=== PATIENT | female | born 1975 | race Hispanic/Latino ===

== ENCOUNTER 2017-10-09 16:36 | Emergency (ER) | payer OTHER ==
[2017-10-09] MEDS ORDERED: predniSONE 20 MG TAB ONE (17:27)
[2017-10-09] MEDS ORDERED: Ibuprofen 800 MG TAB ONE (17:27)
== END 2017-10-09 18:16 | disposition home or self-care (01) ==
LOC: BURERS 16:36
DX: M51.26 Other intervertebral disc displacement, lumbar region (principal); E11.9 Type 2 diabetes mellitus without complications; I10 Essential (primary) hypertension; F32.9 Major depressive disorder, single episode, unspecified; J45.909 Unspecified asthma, uncomplicated; Z87.442 Personal history of urinary calculi
CPT/HCPCS: 96372; J1170; J7506

== ENCOUNTER 2018-01-28 18:40 | Emergency (ER) | payer MEDICARE, MEDICAID | END 2018-01-28 19:08 | disposition home or self-care (01) | LOC: BURERS 18:40 | DX: M77.9 Enthesopathy, unspecified (principal); J45.909 Unspecified asthma, uncomplicated; Z86.718 Personal history of other venous thrombosis and embolism; E11.9 Type 2 diabetes mellitus without complications; I10 Essential (primary) hypertension; F32.9 Major depressive disorder, single episode, unspecified; Z79.84 Long term (current) use of oral hypoglycemic drugs; Z79.899 Other long term (current) drug therapy | CPT/HCPCS: 99283 ==

== ENCOUNTER 2018-03-04 23:23 | Emergency (ER) | payer MEDICARE, MEDICAID ==
[2018-03-05 00:08] LABS: #Basophils 0.2 thou/uL (0.0-0.2); #Eosinphils 0.3 thou/uL (0.0-0.7); #Lymphocytes 2.3 thou/uL (1.20-3.40); #Neutrophils 12.9 thou/uL (1.40-6.50); %Basophils 0.9 % (0.0-1.0); %Eosinophils 1.7 % (0.0-10.0); %Monocytes 5.9 % (0.0-10.0); %Neutrophils 77.5 % (42.0-75.0); Hemoglobin 14.7 g/dL (12.0-16.0); Mean Corpuscular HGB CONC 35.9 g/dL (32.0-36.0); Mean Corpuscular Hemoglobin 29.2 pg (27.0-31.0); Mean Corpuscular Volume 81.3 fl (81.0-99.0); Mean Platelet Volume 7.8 fL (7.4-10.4); Platelet Count 311 thou/uL (130-400); RBC Distribution Width 12.5 % (11.5-14.5); Red Blood Cell (RBC) Count 5.02 mill/uL (4.20-5.40); White Blood Cell (WBC) Count 16.6 thou/uL (4.8-10.8)
[2018-03-05 00:21] LABS: ALT (SGPT) 33 U/L (8-55); AST (SGOT) 26 U/L (5-34); Alkaline Phosphatase 104 U/L (40-150); Anion Gap 13 mmol/L (10-20); BUN (Urea Nitrogen) 8 mg/dL (7.0-18.7); Bilirubin, Total 1.2 mg/dL (0.2-1.2); CK (CPK) 41 U/L (29-168); Calc. Creatinine Clearance 0 mL/min (70-130); Carbon Dioxide 23 mmol/L (22-29); Chloride 103 mmol/L (98-107); Estimated GFR-MDRD 83; Globulin 3.6 g/dL (2.4-3.5); Glucose 269 mg/dL (70-105); Potassium 3.9 mmol/L (3.5-5.1); Protein, Total 7.6 g/dL (6.0-8.3); Sodium 135 mmol/L (136-145)
[2018-03-05 00:22] LABS: CKMB 0.5 ng/mL (0-6.6); Troponin I Less than 0.010 ng/mL (< 0.028)
[2018-03-05 00:30] LABS: Clarity Hazy (Clear); Glucose, Urine (Dipstick) 500 mg/dL (Negative); Leukocyte Negative (Negative); Nitrite Negative (Negative); Protein, Urine (Dipstick) 30 mg/dL (Neg-Trace); pH, Urine 8.5 (5.0-9.0)
[2018-03-05 00:31] LABS: Bilirubin Negative (Negative); Blood, Urine Negative (Negative)
[2018-03-05 00:37] LABS: Bacteria/HPF 1+ HPF (None Seen); RBC/HPF 0-3 HPF (0-3); Squamous Epithelial 0-3 HPF (0-3); WBC/HPF 0-3 HPF (0-3)
[2018-03-05] MEDS ORDERED: cefTRIAXone\\ROCEPHIN 1 GM VIAL ONE (00:53)
[2018-03-05] MEDS ORDERED: Ketorolac Tromethamine 30 MG/ML VIAL ONE (01:01)
--- NOTE | 2018-03-05 10:07 | RAD ---
PORTABLE CHEST: DATE: 03/04/18. FINDINGS: An AP portable film at 2350 shows a normal-sized heart and clear lungs. No infiltrate or effusion wa s seen. At most, there may be a few increased markings in the right base medially, but I am not suff iciently convinced to be able to call a pneumonia at this time. A PA and lateral followup if the pat ient is not improving. IMPRESSION: Probably negative study. Slight haziness right base medially. If symptoms persist, then repeat stud y with PA and lateral views. POS: HOME
== END 2018-03-05 00:59 | disposition home or self-care (01) ==
LOC: BURERS 23:23
DX: E86.0 Dehydration (principal); N39.0 Urinary tract infection, site not specified; E11.9 Type 2 diabetes mellitus without complications; F32.9 Major depressive disorder, single episode, unspecified; I10 Essential (primary) hypertension; M86.9 Osteomyelitis, unspecified; J45.909 Unspecified asthma, uncomplicated; Z87.442 Personal history of urinary calculi; Z79.84 Long term (current) use of oral hypoglycemic drugs; Z79.899 Other long term (current) drug therapy
CPT/HCPCS: 36415; 71045; 80053; 81003; 81015; 82550; 82553; 83605; 84484; 85025; 87040; 87077; 87086; 87186; 87804; 93005; 96361; 96374; 96375; J0696; J1885

== ENCOUNTER 2018-05-04 08:03 | Emergency (ER) | payer MEDICARE, MEDICAID ==
[2018-05-04] MEDS ORDERED: Nitroglycerin 0.4 MG TAB (25 Tab Bottle) ONE (08:23)
[2018-05-04] MEDS ORDERED: Acetaminophen 500 MG TAB ONE (08:23)
[2018-05-04 08:24] LABS: #Basophils 0.1 thou/uL (0.0-0.2); #Eosinphils 0.4 thou/uL (0.0-0.7); #Lymphocytes 2.1 thou/uL (1.20-3.40); #Monocytes 0.5 thou/uL (0.11-0.59); #Neutrophils 5.7 thou/uL (1.40-6.50); %Basophils 1.2 % (0.0-1.0); %Eosinophils 4.8 % (0.0-10.0); %Lymphocytes 23.7 % (21.0-51.0); %Monocytes 5.9 % (0.0-10.0); %Neutrophils 64.4 % (42.0-75.0); Hemoglobin 14.7 g/dL (12.0-16.0); Mean Corpuscular HGB CONC 34.5 g/dL (32.0-36.0); Mean Corpuscular Hemoglobin 27.3 pg (27.0-31.0); Mean Corpuscular Volume 78.9 fL (78.0-98.0); Mean Platelet Volume 6.9 fL (7.4-10.4); Platelet Count 344 thou/uL (130-400); Red Blood Cell (RBC) Count 5.39 mill/uL (4.20-5.40); White Blood Cell (WBC) Count 8.9 thou/uL (4.8-10.8)
[2018-05-04 08:42] LABS: ALT (SGPT) 82 U/L (8-55); AST (SGOT) 73 U/L (5-34); Albumin 4.4 g/dL (3.5-5.0); Alkaline Phosphatase 82 U/L (40-150); Anion Gap 13 mmol/L (10-20); BUN (Urea Nitrogen) 8 mg/dL (7.0-18.7); Bilirubin, Total 1.1 mg/dL (0.2-1.2); Calc. Creatinine Clearance 0 mL/min (70-130); Calcium 9.6 mg/dL (7.8-10.44); Carbon Dioxide 26 mmol/L (22-29); Chloride 107 mmol/L (98-107); Estimated GFR-MDRD 84; Globulin 3.6 g/dL (2.4-3.5); Glucose 150 mg/dL (70-105); Potassium 4.1 mmol/L (3.5-5.1); Sodium 142 mmol/L (136-145)
[2018-05-04 08:44] LABS: CKMB 0.8 ng/mL (0-6.6); Troponin I Less than 0.010 ng/mL (< 0.028)
[2018-05-04] MEDS ORDERED: Ketorolac Tromethamine 30 MG/ML VIAL ONE (09:01)
[2018-05-04] MEDS ORDERED: Pantoprazole 40 MG VIAL ONE (09:16)
[2018-05-04 10:40] LABS: Troponin I Less than 0.010 ng/mL (< 0.028)
--- NOTE | 2018-05-04 19:12 | RAD ---
PORTABLE CHEST: 05/04/18 An AP portable film at 0802 is compared with a 03/04/18 study. The heart is normal in size and the lungs are clear. No infiltrates are seen today. There are no effu sions. The trachea is midline. IMPRESSION: No acute thoracic finding. POS: HOME
== END 2018-05-04 10:55 | disposition home or self-care (01) ==
LOC: BURERS 08:03
DX: R07.9 Chest pain, unspecified (principal); J45.909 Unspecified asthma, uncomplicated; M86.9 Osteomyelitis, unspecified; E11.9 Type 2 diabetes mellitus without complications; I10 Essential (primary) hypertension; Z87.442 Personal history of urinary calculi; Z79.899 Other long term (current) drug therapy; Z79.84 Long term (current) use of oral hypoglycemic drugs; Z79.891 Long term (current) use of opiate analgesic
CPT/HCPCS: 36415; 71045; 80053; 82553; 83690; 83880; 84484; 85025; 85379; 93005; 96374; 96375; C9113; J1885

== ENCOUNTER 2018-08-16 06:01 | Emergency (ER) | payer MEDICARE, MEDICAID ==
--- NOTE | 2018-08-16 21:54 | RAD ---
RIGHT KNEE FOUR VIEWS 08/16/18 No fracture or dislocation was seen. Arthritic changes are seen consisting of small osteophytes and n arrowing particularly in the lateral compartment. No joint effusion was evident. IMPRESSION: Arthritic changes but no acute findings. POS: HOME
== END 2018-08-16 07:09 | disposition home or self-care (01) ==
LOC: BURERS 06:01
DX: M25.561 Pain in right knee (principal); E11.9 Type 2 diabetes mellitus without complications; J45.909 Unspecified asthma, uncomplicated; M86.9 Osteomyelitis, unspecified; G89.29 Other chronic pain; M54.9 Dorsalgia, unspecified; Z87.442 Personal history of urinary calculi; Z86.718 Personal history of other venous thrombosis and embolism; Z79.84 Long term (current) use of oral hypoglycemic drugs; Z79.899 Other long term (current) drug therapy; I10 Essential (primary) hypertension